=== PATIENT | female | born 1945 | race Caucasian/White ===

== ENCOUNTER 2017-04-23 06:07 | Day surgery (SDC) | payer MEDICARE, OTHER ==
[2017-04-23 06:00] LABS: BASOPHILS 0.4 % (0-2); EOSINOPHILS 3.8 % (0-7); HEMATOCRIT 42.6 % (36.0-48.0); HEMOGLOBIN 14.2 g/dL (12-16); IMMATURE GRANULOCYTES 0.1 % (0-5); LYMPHOCYTES 20.7 % (15-50); MCH 29.3 pg (26.0-34.0); MCHC 33.3 g/dL (31.0-37.0); MEAN PLATELET VOLUME 9.9 fL (7.4-10.4); MONOCYTES 7.1 % (2-11); NEUTROPHILS 67.9 % (40-80); PLATELET COUNT 309 10x3/uL (130-400); RBC 4.84 10x6/uL (4.00-5.40); RDW 13.2 % (11.5-14.5); WBC 7.1 10x3/uL (4.8-10.8)
[~2017-04-23 06:07] MED LIST: ASCORBIC ACID500 MG PO; ASPIRIN325 MG PO; BIOTIN5 MG PO; CALCIUM 500 + D1 TAB PO; FEMARA2.5 MG PO; FISH OIL 1,2001 CAP PO; VITAMIN B-121000 MCG PO; VITAMIN D5000 UNIT PO; ZESTORETIC 20-1 EACH PO
[2017-04-23 06:17] LABS: ANION GAP 11.3 mmol/L (8-16); CALCIUM 9.4 mg/dL (8.5-10.1); CARBON DIOXIDE 28.5 mmol/L (21.0-32.0); CREATININE - SERUM 0.9 mg/dL (0.6-1.3); POTASSIUM - SERUM 3.8 mmol/L (3.5-5.1)
[2017-04-23 06:41] VITALS: BP 134/83; BMI 32.6
[2017-04-23] MEDS ORDERED: HYDROCODONE-APA1 TAB PO (08:40)
--- NOTE | 2017-04-23 09:47 | NUR ---
0935 SERVED Patient Communicator. DRINKING WATER & COFFEE. NO COMPLAINTS OF NAUSEA VOICED. Noemy BERGMAN R.N.
--- NOTE | 2017-04-26 13:11 | OP ---
PATIENT NAME: JACK RUELAS MEDICAL RECORD: [id number] :47 LOCATION:D.OPS ADMISSION DATE: SURGEON: VARGHESE AQUINO MD DATE OF OPERATION: 04/23/2017 PREOPERATIVE DIAGNOSES: 1. Umbilical hernia. 2. Hypertension. POSTOPERATIVE DIAGNOSES: 1. Umbilical hernia. 2. Hypertension. 3. Abdominal wall lipoma. SURGEON: Varghese Aquino MD PROCEDURES: 1. Excision of abdominal wall lipoma. 2. Umbilical hernia repair without mess. REPORT OF PROCEDURE: The patient's abdomen was prepped and draped in sterile fashion. A skin incision was made on the superior aspect of the patient's umbilicus in the midline. Electrocautery was used to dissect through the subcutaneous tissues. We dissected all the way down to the fascia. We elevated the patient's umbilicus and found a small hernia defect. It was less than a centimeter in greatest diameter. I did not feel any other hernia defects in this space, but there was a fatty mass in the subcutaneous tissue, which is what was being felt in the clinic preoperatively. This was actually a lipoma. This lipoma was excised from the surrounding tissues. It measured about 2 cm in greatest diameter. Once the lipoma was completely excised and we treated the area with electrocautery to remove any remaining tissue, the umbilical fascia was then cleared off and was reapproximated with interrupted 0 Prolenes times 3 in a transverse fashion. We then irrigated out the wound with normal saline and assured there was no sign of any bleeding. The umbilicus was tacked back down to the fascia using an interrupted 3-0 Vicryl. The subcutaneous tissues were reapproximated with interrupted 3-0 Vicryl, and the skin was closed with running subcutaneous 5-0 Monocryl. A 10 mL of 0.25% Marcaine plain was infused into the surrounding tissues and the wound was dressed appropriately. COMPLICATIONS: None. CONDITION: Stable. ANESTHESIA: General endotracheal and local. BLOOD LOSS: Minimal. 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
== END 2017-04-23 10:35 | disposition home or self-care (01) ==
LOC: D.OPS 06:07 → D.PAN 07:30 → D.OPS 10:35
PROVIDERS: Surgery
DX: K42.9 Umbilical hernia without obstruction or gangrene (principal); I10 Essential (primary) hypertension; M10.9 Gout, unspecified; D17.9 Benign lipomatous neoplasm, unspecified; Z01.812 Encounter for preprocedural laboratory examination